=== PATIENT | male | born 1995 | race Caucasian/White ===

== ENCOUNTER 2020-04-15 10:04 | Emergency (ER) | payer OTHER, SELFPAY ==
[~2020-04-15] VITALS: Ht 170.2 cm; Wt 124.7 kg
[2020-04-15 10:06] VITALS: BP 154/91; Ht 170.2 cm; Wt 124.7 kg
== END 2020-04-15 11:15 | disposition home or self-care (01) ==
LOC: ED 10:04
DX: U07.1 COVID-19 (principal); J45.909 Unspecified asthma, uncomplicated